=== PATIENT | male | born 1970 | race African-American/Black ===

== ENCOUNTER 2024-11-28 20:59 | Inpatient (IN) | payer OTHER ==
[2024-11-28 21:23] VITALS: BMI 31.4
[2024-11-28] MEDS ORDERED: BENZONATATE 200 MG CAPSULE PO PRN (21:53)
[2024-11-28] MEDS ORDERED: NALOXONE (NARCAN) HCL 4 MG/0.1 ML SPRAY NS PRN (21:53)
[2024-11-28] MEDS ORDERED: guaiFENesin 600 MG TABLET.ER (FP) PO PRN (21:53)
[2024-11-28] MEDS ORDERED: LOPERAMIDE HCL 2 MG CAPSULE PO PRN (21:53)
[2024-11-28] MEDS ORDERED: MAG HYDROX/AL HYDROX/SIMETH 30 ML UNIT-DOSE CUP PO PRN (21:53)
[2024-11-28] MEDS ORDERED: POLYETHYLENE GLYCOL (HEALTHYLAX) 3350 17 GM PACKET PO PRN (21:53)
[2024-11-28] MEDS ORDERED: IBUPROFEN 400 MG TABLET (FP) PO PRN (21:53)
[2024-11-28] MEDS ORDERED: BISMUTH SUBSALICYLATE 524 MG/30 ML PO PRN (21:53)
[2024-11-28] MEDS ORDERED: BENZOCAINE/MENTHOL (CHLORASEPTIC ) LOZENGE MM PRN (21:53)
[2024-11-28] MEDS ORDERED: DICYCLOMINE HCL 10 MG CAPSULE PO PRN (21:53)
[2024-11-28] MEDS ORDERED: MAGNESIUM HYDROX 2400MG/30ML ORAL SUSPENSION 30 ML CUP PO PRN (21:53)
[2024-11-28] MEDS ORDERED: ONDANSETRON *ODT* 4 MG TABLET SL PRN (21:53)
[2024-11-28] MEDS ORDERED: NICOTINE POLACRILEX 4 MG LOZENGE BC PRN (21:53)
[2024-11-28] MEDS ORDERED: ACETAMINOPHEN 325 MG TABLET (FP) PO PRN (21:53)
[2024-11-28] MEDS: METHOCARBAMOL 500 MG TABLET PO PRN (22:56)
[2024-11-28] MEDS: THIAMINE 100 MG TABLET PO SCH (22:57)
[2024-11-28] MEDS: MELATONIN 5 MG TABLETS PO SCH (22:57)
[2024-11-28] MEDS: IBUPROFEN 600 MG TABLET (FP) PO PRN (22:57)
[2024-11-29] MEDS: PRENATAL VITAMINS W/ FOLIC ACID TABLET (FP) PO SCH (09:12)
[2024-11-29] MEDS: NICOTINE 14 MG/24 HOURS TOPICAL PATCH TD SCH (09:12)
[2024-11-29 09:22] LABS: CHLORIDE 105 mmol/L (98-107); POTASSIUM 4.6 mmol/L (3.5-5.1); SODIUM 139 mmol/L (136-145)
[2024-11-29 09:26] LABS: CALCIUM 8.6 mg/dL (8.5-10.1)
[2024-11-29 09:27] LABS: ALBUMIN 3.1 g/dl (3.4-5.0); ANION GAP 5 mmol/L (4-13); BLOOD UREA NITROGEN 14.6 mg/dL (7-18); CO2 30 mmol/L (21-32); GLUCOSE,RANDOM 97 mg/dL (74-106)
[2024-11-29 09:30] LABS: CREATININE 0.9 mg/dL (0.55-1.3); SGOT/AST 15 U/L (15-37); SGPT/ALT 19 U/L (13-61)
[2024-11-29 09:31] LABS: BILIRUBIN,TOTAL 0.5 mg/dL (0.2-1)
[2024-11-29 09:32] LABS: HEMATOCRIT 35.5 % (35.4-49); HEMOGLOBIN 12.2 GM/dL (11.7-16.9); MCH 28.2 pg (25.7-33.7); MCHC 34.4 g/dl (32.0-35.9); MEAN PLT VOLUME 7.6 fl (7.5-11.1); PLATELET COUNT 249 10^3/uL (134-434); RBC 4.32 M/mm3 (4.00-5.60); RDW 12.7 % (11.9-15.9); WHITE BLOOD COUNT 7.4 K/mm3 (4.0-10.0)
[2024-11-29 09:33] LABS: ALK PHOS 80 U/L (45-117)
[2024-11-29 10:20] LABS: HIV INTERPRETATION NEGATIVE (NEGATIVE)
[2024-11-29] MEDS ORDERED: cloNIDine HCL 0.1 MG TABLET PO PRN (14:17)
[2024-11-29] MEDS ORDERED: methaDONE HCL 10 MG TABLET (FOR DETOX USE ONLY) PO PRN (14:17)
[2024-11-29] MEDS: methaDONE HCL 10 MG TABLET (FOR DETOX USE ONLY) PO ONE (14:56)
[2024-11-29] MEDS: hydrOXYzine PAMOATE 25 MG CAPSULE (FP) PO PRN (21:35)
[2024-12-01 09:09] VITALS: PULSE 69
[2024-12-01] MEDS: methaDONE HCL 10 MG TABLET (FOR DETOX USE ONLY) PO ONE (10:11)
[2024-12-01 12:57] VITALS: BP 140/87; RESP 18; TEMP 97.7
[2024-12-01] MEDS ORDERED: NALOXONE (NYS OPIOID OVERDOSE PROGRAM) 4 MG/0.1 ML SPRAY NS SCH (14:00)
[2024-12-03] MEDS ORDERED: methaDONE HCL 10 MG TABLET (FOR DETOX USE ONLY) PO ONE (10:00)
== END 2024-12-01 13:47 | disposition left against medical advice (07) | DRG 770 ==
LOC: YASAS 20:59 → Y3N 22:05
PROVIDERS: ADMIT Allergy & Immunology; ATTEND Allergy & Immunology
PROC: HZ2ZZZZ Detoxification Services for Substance Abuse Treatment (ICD-10-PCS; principal; 2024-11-28)
DX: F11.23 Opioid dependence with withdrawal (principal); F15.20 Other stimulant dependence, uncomplicated; F12.20 Cannabis dependence, uncomplicated; F17.210 Nicotine dependence, cigarettes, uncomplicated; F19.282 Other psychoactive substance dependence with psychoactive substance-induced sleep disorder; F19.24 Other psychoactive substance dependence with psychoactive substance-induced mood disorder; Z56.0 Unemployment, unspecified; Z59.00 Homelessness unspecified
CPT/HCPCS: 36415; 80053; 80305; 80307; 85027; 86780; 86803; 87389; 93005; 93010

== ENCOUNTER 2024-12-03 01:46 | Inpatient (IN) | payer OTHER ==
[2024-12-03] MEDS ORDERED: ACETAMINOPHEN 325 MG TABLET (FP) PO PRN (02:25)
[2024-12-03] MEDS ORDERED: DICYCLOMINE HCL 10 MG CAPSULE PO PRN (02:25)
[2024-12-03] MEDS ORDERED: POLYETHYLENE GLYCOL (HEALTHYLAX) 3350 17 GM PACKET PO PRN (02:25)
[2024-12-03] MEDS ORDERED: NALOXONE (NARCAN) HCL 4 MG/0.1 ML SPRAY NS PRN (02:25)
[2024-12-03] MEDS ORDERED: guaiFENesin 600 MG TABLET.ER (FP) PO PRN (02:25)
[2024-12-03] MEDS ORDERED: hydrOXYzine PAMOATE 25 MG CAPSULE (FP) PO PRN (02:25)
[2024-12-03] MEDS ORDERED: MAGNESIUM HYDROX 2400MG/30ML ORAL SUSPENSION 30 ML CUP PO PRN (02:25)
[2024-12-03] MEDS ORDERED: BENZOCAINE/MENTHOL (CHLORASEPTIC ) LOZENGE MM PRN (02:25)
[2024-12-03] MEDS ORDERED: LOPERAMIDE HCL 2 MG CAPSULE PO PRN (02:25)
[2024-12-03] MEDS ORDERED: MAG HYDROX/AL HYDROX/SIMETH 30 ML UNIT-DOSE CUP PO PRN (02:25)
[2024-12-03] MEDS ORDERED: ONDANSETRON *ODT* 4 MG TABLET SL PRN (02:25)
[2024-12-03] MEDS ORDERED: NICOTINE POLACRILEX 2 MG LOZENGE BC PRN (02:25)
[2024-12-03] MEDS ORDERED: IBUPROFEN 400 MG TABLET (FP) PO PRN (02:25)
[2024-12-03] MEDS ORDERED: BISMUTH SUBSALICYLATE 524 MG/30 ML PO PRN (02:25)
[2024-12-03] MEDS ORDERED: BENZONATATE 200 MG CAPSULE PO PRN (02:25)
[2024-12-03 02:57] VITALS: BMI 32.2
[2024-12-03] MEDS: IBUPROFEN 600 MG TABLET (FP) PO PRN (03:27)
[2024-12-03] MEDS: METHOCARBAMOL 500 MG TABLET PO PRN (03:27)
[2024-12-03] MEDS: PRENATAL VITAMINS W/ FOLIC ACID TABLET (FP) PO SCH (10:17)
[2024-12-03] MEDS: NICOTINE 14 MG/24 HOURS TOPICAL PATCH TD SCH (10:17)
[2024-12-03] MEDS: cloNIDine HCL 0.1 MG TABLET PO PRN (13:02)
[2024-12-03] MEDS: MELATONIN 5 MG TABLETS PO SCH (22:10)
[2024-12-03] MEDS: THIAMINE 100 MG TABLET PO SCH (22:10)
[2024-12-04] MEDS: methaDONE HCL 10 MG TABLET (FOR DETOX USE ONLY) PO ONE (10:27)
[2024-12-04] MEDS: clonazePAM 0.5 MG ODT TABLETS SL PRN (22:34)
[2024-12-05 08:47] VITALS: BP 150/83; PULSE 67; RESP 18; TEMP 97.6
[2024-12-05] MEDS: NALOXONE (NYS OPIOID OVERDOSE PROGRAM) 4 MG/0.1 ML SPRAY NS SCH (09:42)
[2024-12-07] MEDS ORDERED: methaDONE HCL 10 MG TABLET (FOR DETOX USE ONLY) PO ONE (10:00)
== END 2024-12-05 11:44 | disposition home or self-care (01) | DRG 773 ==
LOC: YASAS 01:46 → Y6N 03:01
PROVIDERS: ADMIT Allergy & Immunology; ATTEND Family Medicine Addiction Medicine
PROC: HZ2ZZZZ Detoxification Services for Substance Abuse Treatment (ICD-10-PCS; principal; 2024-12-03)
DX: F11.23 Opioid dependence with withdrawal (principal); F12.10 Cannabis abuse, uncomplicated; F17.210 Nicotine dependence, cigarettes, uncomplicated; G62.9 Polyneuropathy, unspecified
CPT/HCPCS: 36415; 80305; 80307